=== PATIENT | female | born 1970 | race Caucasian/White ===

== ENCOUNTER 2022-05-05 14:40 | Inpatient (IN) | payer MEDICAID ==
[~2022-05-05] VITALS: Ht 162.6 cm; Wt 132.4 kg
[2022-05-05 15:30] VITALS: BP 116/53
[2022-05-05] MEDS ORDERED: TRAMADOL 50MG TABLET PO PRN ×2 (17:45→18:00)
[2022-05-05] MEDS ORDERED: NALOXONE HCL 0.4MG/ML VIAL IV PRN ×2 (18:00)
[2022-05-05 20:00] VITALS: BP 158/71
[2022-05-05] MEDS: HYDROCODONE/ACETAMINOPHEN 5/325MG TABLET PO PRN (20:00)
[2022-05-05 20:20] VITALS: BP 167/71
[2022-05-06] MEDS: HYDROCODONE/ACETAMINOPHEN 5/325MG TABLET PO PRN ×2 (04:35→10:09)
[2022-05-06 08:00] VITALS: BP 106/66
[2022-05-06] MEDS ORDERED: MORPHINE SULFATE 2 MG/ML CPJ (NOT FOR IM USE) IV PRN (11:00)
[2022-05-06] MEDS ORDERED: HYDROCODONE/ACETAMINOPHEN 10/325MG TABLET PO PRN (11:00)
[2022-05-06] MEDS ORDERED: HYDROCODONE/ACETAMINOPHEN 5/325MG TABLET PO PRN (11:15)
[2022-05-06 11:57] LABS: BASOPHILS % 0.6 % (0.0-2.0); EOSINOPHILS % 3.1 % (0.0-5.0); HEMATOCRIT. 42.1 % (36.0-48.0); HEMOGLOBIN. 13.7 g/dL (12.0-16.0); LYMPHOCYTES % 13.5 % (20.0-50.0); MEAN CORPUSCULAR HEMOGLOBIN 31.7 pg (28.0-32.0); MEAN CORPUSCULAR VOLUME 97.3 fL (81.0-99.0); MEAN PLATELET VOLUME 8.4 fl (7.4-10.4); MONOCYTES % 8.8 % (2.0-8.0); PLATELET 269 x1000/uL (130-400); RED BLOOD CELL COUNT 4.33 mill/uL (4.2-5.4); RED CELL DISTRIBUTION WIDTH 15.1 % (11.6-14.6)
[2022-05-06] MEDS: LIDOCAINE 5% PATCH TOP SCH (12:03)
[2022-05-06 12:21] LABS: CHLORIDE 104 mEq/L (98-107)
[2022-05-06] MEDS ORDERED: IPRATROPIUM/ALBUTEROL 0.5-3(2.5)MG/3ML NEB HHN PRN (14:30)
[2022-05-06] MEDS ORDERED: HEPARIN 5000 UNITS/ML VIAL SUBCUT ONE (14:30)
[2022-05-06] MEDS ORDERED: ALBUTEROL (0.083%) 2.5MG/3ML NEB HHN PRN (14:45)
[2022-05-06] MEDS ORDERED: IPRATROPIUM BROMIDE (0.02%) 0.5MG/2.5ML NEB HHN PRN (14:45)
[2022-05-06] MEDS: ASPIRIN 81MG TABLET PO SCH (15:14)
[2022-05-06] MEDS: AMLODIPINE 5MG TABLET PO SCH (15:14)
[2022-05-06] MEDS: ASCORBIC ACID 500 MG TABLET PO SCH (15:17)
[2022-05-06] MEDS: NICOTINE 14MG PATCH TD SCH (15:21)
[2022-05-06 15:45] LABS: BASOPHILS % 0.6 % (0.0-2.0); EOSINOPHILS % 2.8 % (0.0-5.0); HEMATOCRIT. 40.2 % (36.0-48.0); HEMOGLOBIN. 13.3 g/dL (12.0-16.0); LYMPHOCYTES % 13.2 % (20.0-50.0); MEAN CORPUSCULAR HEMOGLOBIN 31.9 pg (28.0-32.0); MEAN CORPUSCULAR VOLUME 95.9 fL (81.0-99.0); MEAN PLATELET VOLUME 8.1 fl (7.4-10.4); MONOCYTES % 8.2 % (2.0-8.0); NEUTROPHILS % 75.2 % (40.0-76.0); PLATELET 310 x1000/uL (130-400); RED BLOOD CELL COUNT 4.19 mill/uL (4.2-5.4); RED CELL DISTRIBUTION WIDTH 15.1 % (11.6-14.6)
[2022-05-06] MEDS: HYDROCODONE/ACETAMINOPHEN 10/325MG TABLET PO PRN (16:12)
[2022-05-06] MEDS: BACLOFEN 10MG TABLET PO SCH ×2 (16:25→20:45)
[2022-05-06] MEDS: TIZANIDINE HCL 2MG TABLET PO PRN (16:26)
[2022-05-06] MEDS: ENOXAPARIN 40MG/0.4ML SYR SUBCUT SCH (16:28)
[2022-05-06 19:49] VITALS: BP 166/94
[2022-05-06] MEDS: ATORVASTATIN CALCIUM 40MG TABLET PO SCH (20:43)
[2022-05-06] MEDS: HYDRALAZINE HCL 25MG TABLET PO PRN (20:47)
[2022-05-07] MEDS: BISACODYL 10MG SUPP PR PRN (00:02)
[2022-05-07] MEDS: HYDROCODONE/ACETAMINOPHEN 10/325MG TABLET PO PRN ×3 (00:48→12:56)
[2022-05-07] MEDS: ENOXAPARIN 40MG/0.4ML SYR SUBCUT SCH ×2 (05:56→17:30)
[2022-05-07 06:42] LABS: CHLORIDE 100 mEq/L (98-107)
[2022-05-07 07:02] LABS: TOTAL IRON BINDING CAPACITY 347 ug/dL (250-450)
[2022-05-07 07:13] LABS: BASOPHILS % 0.6 % (0.0-2.0); EOSINOPHILS % 2.8 % (0.0-5.0); HEMATOCRIT. 38.7 % (36.0-48.0); LYMPHOCYTES % 13.8 % (20.0-50.0); MEAN CORPUSCULAR HEMOGLOBIN 32.1 pg (28.0-32.0); MEAN CORPUSCULAR VOLUME 95.8 fL (81.0-99.0); MEAN PLATELET VOLUME 8.3 fl (7.4-10.4); MONOCYTES % 9.7 % (2.0-8.0); NEUTROPHILS % 73.1 % (40.0-76.0); PLATELET 279 x1000/uL (130-400); RED BLOOD CELL COUNT 4.04 mill/uL (4.2-5.4); RED CELL DISTRIBUTION WIDTH 14.7 % (11.6-14.6)
[2022-05-07 07:54] VITALS: BP 151/69
[2022-05-07 08:13] LABS: HEPATITIS B SURFACE ANTIGEN NEGATIVE
[2022-05-07 08:18] LABS: FOLIC ACID (FOLATE) SERUM 14.5 ng/mL (>5.38)
[2022-05-07] MEDS: AMLODIPINE 5MG TABLET PO SCH (08:34)
[2022-05-07] MEDS: BACLOFEN 10MG TABLET PO SCH ×4 (08:34→21:04)
[2022-05-07] MEDS: ASPIRIN 81MG TABLET PO SCH (08:34)
[2022-05-07] MEDS: NICOTINE 14MG PATCH TD SCH (08:35)
[2022-05-07] MEDS: LIDOCAINE 5% PATCH TOP SCH (08:35)
[2022-05-07] MEDS: ASCORBIC ACID 500 MG TABLET PO SCH (08:35)
[2022-05-07] MEDS: FERROUS SULFATE 325MG TABLET PO SCH (08:35)
[2022-05-07 14:25] LABS: CREATINE KINASE 76 IU/L (26-192)
[2022-05-07 20:00] VITALS: BP 139/62
[2022-05-07] MEDS: ATORVASTATIN CALCIUM 40MG TABLET PO SCH (21:04)
[2022-05-08] MEDS: ENOXAPARIN 40MG/0.4ML SYR SUBCUT SCH ×2 (05:42→18:51)
[2022-05-08] MEDS: HYDROCODONE/ACETAMINOPHEN 10/325MG TABLET PO PRN ×2 (06:05→14:40)
[2022-05-08 07:21] LABS: CLARITY URINE CLOUDY (CLEAR); COLOR URINE YELLOW (YELLOW); KETONES URINE TRACE (NEGATIVE); LEUKOCYTE ESTERASE URINE NEGATIVE (NEGATIVE); NITRITE URINE NEGATIVE (NEGATIVE); OCCULT BLOOD URINE NEGATIVE (NEGATIVE); PH URINE 5.5 (4.5-8.0); PROTEIN URINE 3+ (NEGATIVE); SPECIFIC GRAVITY URINE 1.022 (1.005-1.030)
[2022-05-08 08:00] VITALS: BP 140/38
[2022-05-08] MEDS: BACLOFEN 10MG TABLET PO SCH ×4 (09:02→22:14)
[2022-05-08] MEDS: AMLODIPINE 5MG TABLET PO SCH (09:02)
[2022-05-08] MEDS: NICOTINE 14MG PATCH TD SCH (09:03)
[2022-05-08] MEDS: ASPIRIN 81MG TABLET PO SCH (09:03)
[2022-05-08] MEDS: ASCORBIC ACID 500 MG TABLET PO SCH (09:03)
[2022-05-08] MEDS: LIDOCAINE 5% PATCH TOP SCH (09:04)
[2022-05-08] MEDS ORDERED: NA PHOS,M-B/NA PHOS,DI-BA ENEMA 118ML PR PRN (10:15)
[2022-05-08] MEDS ORDERED: LACTULOSE 20G/30ML UDC PO SCH (12:00)
[2022-05-08] MEDS: LACTULOSE 20G/30ML UDC PO PRN ×2 (18:40→18:51)
[2022-05-08 20:00] VITALS: BP 121/54
[2022-05-08] MEDS: ATORVASTATIN CALCIUM 40MG TABLET PO SCH (22:14)
[2022-05-09] MEDS: HYDROCODONE/ACETAMINOPHEN 10/325MG TABLET PO PRN ×2 (00:07→18:26)
[2022-05-09] MEDS: LEVOTHYROXINE SODIUM 50MCG TABLET PO SCH (06:28)
[2022-05-09] MEDS: ENOXAPARIN 40MG/0.4ML SYR SUBCUT SCH ×2 (06:29→17:27)
[2022-05-09 08:00] VITALS: BP 136/68
[2022-05-09] MEDS ORDERED: LACTULOSE 20G/30ML UDC PO PRN (08:00)
[2022-05-09] MEDS: BACLOFEN 10MG TABLET PO SCH ×4 (08:45→21:07)
[2022-05-09] MEDS: ASCORBIC ACID 500 MG TABLET PO SCH (08:47)
[2022-05-09] MEDS: ASPIRIN 81MG TABLET PO SCH (09:00)
[2022-05-09] MEDS: LIDOCAINE 5% PATCH TOP SCH (09:00)
[2022-05-09] MEDS: FERROUS SULFATE 325MG TABLET PO SCH (09:00)
[2022-05-09] MEDS: AMLODIPINE 5MG TABLET PO SCH (09:00)
[2022-05-09] MEDS: NICOTINE 14MG PATCH TD SCH (09:00)
[2022-05-09 13:06] LABS: ANTI-CARDIOLIPIN AB IGA < 9 APL U/mL (0-11); ANTI-CARDIOLIPIN AB IGG < 9 GPL U/mL (0-14); ANTI-CARDIOLIPIN AB IGM < 9 MPL U/mL (0-12)
[2022-05-09 17:06] LABS: ANTI-THROMBIN ACTIVITY 125 % (75-135); PROTEIN C FUNCTIONAL 195 % (73-180)
[2022-05-09 20:05] VITALS: BP 131/62
[2022-05-09] MEDS: ATORVASTATIN CALCIUM 40MG TABLET PO SCH (21:08)
[2022-05-10] MEDS: HYDROCODONE/ACETAMINOPHEN 10/325MG TABLET PO PRN ×2 (02:58→11:51)
[2022-05-10 06:18] LABS: BASOPHILS % 0.7 % (0.0-2.0); EOSINOPHILS % 3.9 % (0.0-5.0); HEMATOCRIT. 38.3 % (36.0-48.0); HEMOGLOBIN. 12.8 g/dL (12.0-16.0); LYMPHOCYTES % 18.6 % (20.0-50.0); MEAN CORPUSCULAR HEMOGLOBIN 32.1 pg (28.0-32.0); MEAN CORPUSCULAR VOLUME 96.3 fL (81.0-99.0); MONOCYTES % 9.6 % (2.0-8.0); NEUTROPHILS % 67.2 % (40.0-76.0); PLATELET 284 x1000/uL (130-400); RED BLOOD CELL COUNT 3.98 mill/uL (4.2-5.4); RED CELL DISTRIBUTION WIDTH 14.8 % (11.6-14.6)
[2022-05-10] MEDS: LEVOTHYROXINE SODIUM 50MCG TABLET PO SCH (06:56)
[2022-05-10] MEDS: ENOXAPARIN 40MG/0.4ML SYR SUBCUT SCH ×2 (06:56→18:48)
[2022-05-10 08:00] VITALS: BP 117/58
[2022-05-10] MEDS: BACLOFEN 10MG TABLET PO SCH ×4 (09:54→20:35)
[2022-05-10] MEDS: ASPIRIN 81MG TABLET PO SCH (09:54)
[2022-05-10] MEDS: AMLODIPINE 5MG TABLET PO SCH (09:54)
[2022-05-10] MEDS: NICOTINE 14MG PATCH TD SCH (09:55)
[2022-05-10] MEDS: LIDOCAINE 5% PATCH TOP SCH (09:55)
[2022-05-10] MEDS: ASCORBIC ACID 500 MG TABLET PO SCH (09:55)
[2022-05-10 15:11] LABS: FACTOR V LEIDEN See below: (.)
[2022-05-10 19:44] VITALS: BP 121/56
[2022-05-10] MEDS: ATORVASTATIN CALCIUM 40MG TABLET PO SCH (20:35)
[2022-05-10] MEDS: BISACODYL 10MG SUPP PR PRN (22:30)
[2022-05-11] MEDS: ENOXAPARIN 40MG/0.4ML SYR SUBCUT SCH ×2 (06:19→18:22)
[2022-05-11] MEDS: LEVOTHYROXINE SODIUM 50MCG TABLET PO SCH (06:19)
[2022-05-11 07:08] LABS: 25-HYDROXY VITAMIN D3 12 ng/mL (.)
[2022-05-11 08:00] VITALS: BP 125/69
[2022-05-11] MEDS: NICOTINE 14MG PATCH TD SCH (09:00)
[2022-05-11] MEDS: AMLODIPINE 5MG TABLET PO SCH (09:00)
[2022-05-11] MEDS: ASCORBIC ACID 500 MG TABLET PO SCH (09:00)
[2022-05-11] MEDS: ASPIRIN 81MG TABLET PO SCH (09:00)
[2022-05-11] MEDS: FERROUS SULFATE 325MG TABLET PO SCH (09:00)
[2022-05-11] MEDS: BACLOFEN 10MG TABLET PO SCH ×4 (09:00→22:01)
[2022-05-11] MEDS: LIDOCAINE 5% PATCH TOP SCH (09:00)
[2022-05-11] MEDS: HYDROCODONE/ACETAMINOPHEN 10/325MG TABLET PO PRN (16:12)
[2022-05-11] MEDS: ERGOCALCIFEROL 50000UNITS CAPSULE PO SCH (16:12)
[2022-05-11 20:00] VITALS: BP 137/51
[2022-05-11] MEDS: ATORVASTATIN CALCIUM 40MG TABLET PO SCH (22:00)
[2022-05-12] MEDS: HYDROCODONE/ACETAMINOPHEN 10/325MG TABLET PO PRN ×3 (00:18→23:00)
[2022-05-12] MEDS: ENOXAPARIN 40MG/0.4ML SYR SUBCUT SCH ×2 (06:54→17:37)
[2022-05-12] MEDS: LEVOTHYROXINE SODIUM 50MCG TABLET PO SCH (06:54)
[2022-05-12 08:00] VITALS: BP 137/55
[2022-05-12] MEDS: LIDOCAINE 5% PATCH TOP SCH (09:00)
[2022-05-12] MEDS: ASCORBIC ACID 500 MG TABLET PO SCH (09:00)
[2022-05-12] MEDS: NICOTINE 14MG PATCH TD SCH (09:00)
[2022-05-12] MEDS: ASPIRIN 81MG TABLET PO SCH (10:12)
[2022-05-12] MEDS: AMLODIPINE 5MG TABLET PO SCH (10:12)
[2022-05-12] MEDS: BACLOFEN 10MG TABLET PO SCH ×4 (10:12→22:41)
[2022-05-12] MEDS ORDERED: NALOXONE HCL 0.4MG/ML VIAL IV PRN (12:15)
[2022-05-12] MEDS: METHYLPHENIDATE HCL 5MG TABLET PO SCH (16:00)
[2022-05-12 20:00] VITALS: BP 138/59
[2022-05-12] MEDS: ATORVASTATIN CALCIUM 40MG TABLET PO SCH (22:43)
[2022-05-13] MEDS: ENOXAPARIN 40MG/0.4ML SYR SUBCUT SCH ×2 (06:52→16:52)
[2022-05-13] MEDS: LEVOTHYROXINE SODIUM 50MCG TABLET PO SCH (06:53)
[2022-05-13] MEDS: NICOTINE 14MG PATCH TD SCH (10:20)
[2022-05-13] MEDS: ASPIRIN 81MG TABLET PO SCH (10:21)
[2022-05-13] MEDS: ASCORBIC ACID 500 MG TABLET PO SCH (10:22)
[2022-05-13] MEDS: FERROUS SULFATE 325MG TABLET PO SCH (10:22)
[2022-05-13] MEDS: METHYLPHENIDATE HCL 5MG TABLET PO SCH (10:22)
[2022-05-13] MEDS: BUPROPION HCL 150MG TABLET XL 24HR PO SCH (10:23)
[2022-05-13] MEDS: AMLODIPINE 5MG TABLET PO SCH (10:24)
[2022-05-13] MEDS: BACLOFEN 10MG TABLET PO SCH ×4 (10:25→20:57)
[2022-05-13 11:00] VITALS: BP 115/72
[2022-05-13] MEDS: HYDROCODONE/ACETAMINOPHEN 10/325MG TABLET PO PRN ×2 (11:13→21:45)
[2022-05-13] MEDS: LIDOCAINE 5% PATCH TOP SCH (11:14)
[2022-05-13] MEDS: LACTULOSE 20G/30ML UDC PO PRN (16:38)
[2022-05-13 20:00] VITALS: BP 130/57
[2022-05-13] MEDS: ATORVASTATIN CALCIUM 40MG TABLET PO SCH (20:57)
[2022-05-13] MEDS: MORPHINE SULFATE 15MG TABLET SR PO SCH (22:30)
[2022-05-14 05:42] LABS: BASOPHILS % 0.6 % (0.0-2.0); EOSINOPHILS % 3.1 % (0.0-5.0); HEMATOCRIT. 38.8 % (36.0-48.0); LYMPHOCYTES % 18.2 % (20.0-50.0); MEAN CORPUSCULAR HEMOGLOBIN 31.9 pg (28.0-32.0); MEAN CORPUSCULAR VOLUME 95.3 fL (81.0-99.0); MEAN PLATELET VOLUME 8.2 fl (7.4-10.4); MONOCYTES % 7.7 % (2.0-8.0); NEUTROPHILS % 70.4 % (40.0-76.0); PLATELET 307 x1000/uL (130-400); RED BLOOD CELL COUNT 4.07 mill/uL (4.2-5.4); RED CELL DISTRIBUTION WIDTH 14.3 % (11.6-14.6)
[2022-05-14] MEDS: ENOXAPARIN 40MG/0.4ML SYR SUBCUT SCH ×2 (05:54→19:08)
[2022-05-14] MEDS: HYDROCODONE/ACETAMINOPHEN 10/325MG TABLET PO PRN (06:03)
[2022-05-14] MEDS: LEVOTHYROXINE SODIUM 50MCG TABLET PO SCH (06:06)
[2022-05-14] MEDS: AMLODIPINE 5MG TABLET PO SCH (09:00)
[2022-05-14] MEDS: METHYLPHENIDATE HCL 5MG TABLET PO SCH (09:29)
[2022-05-14 10:49] VITALS: BP 119/81
[2022-05-14] MEDS: LIDOCAINE 5% PATCH TOP SCH (12:58)
[2022-05-14] MEDS: NICOTINE 14MG PATCH TD SCH (12:58)
[2022-05-14] MEDS: BUPROPION HCL 150MG TABLET XL 24HR PO SCH (12:59)
[2022-05-14] MEDS: ASCORBIC ACID 500 MG TABLET PO SCH (12:59)
[2022-05-14] MEDS: BACLOFEN 10MG TABLET PO SCH ×4 (13:00→21:23)
[2022-05-14] MEDS: ASPIRIN 81MG TABLET PO SCH (13:00)
[2022-05-14] MEDS: HYDRALAZINE HCL 25MG TABLET PO PRN (13:01)
[2022-05-14] MEDS: MORPHINE SULFATE 15MG TABLET SR PO SCH ×2 (13:01→20:44)
[2022-05-14] MEDS: BISACODYL 10MG SUPP PR PRN (19:19)
[2022-05-14 20:00] VITALS: BP 138/66
[2022-05-14] MEDS: ATORVASTATIN CALCIUM 40MG TABLET PO SCH (20:36)
[2022-05-15] MEDS: ENOXAPARIN 40MG/0.4ML SYR SUBCUT SCH ×2 (06:43→17:47)
[2022-05-15] MEDS: LEVOTHYROXINE SODIUM 50MCG TABLET PO SCH (06:43)
[2022-05-15 08:00] VITALS: BP 128/51
[2022-05-15] MEDS: FERROUS SULFATE 325MG TABLET PO SCH (09:00)
[2022-05-15] MEDS: ASPIRIN 81MG TABLET PO SCH (09:00)
[2022-05-15] MEDS: MORPHINE SULFATE 15MG TABLET SR PO SCH ×2 (09:00→22:00)
[2022-05-15] MEDS: ASCORBIC ACID 500 MG TABLET PO SCH (09:00)
[2022-05-15] MEDS: LIDOCAINE 5% PATCH TOP SCH (09:00)
[2022-05-15] MEDS: NICOTINE 14MG PATCH TD SCH (09:00)
[2022-05-15] MEDS: METHYLPHENIDATE HCL 5MG TABLET PO SCH (09:00)
[2022-05-15] MEDS: BACLOFEN 10MG TABLET PO SCH ×4 (09:00→21:45)
[2022-05-15] MEDS: AMLODIPINE 5MG TABLET PO SCH (09:00)
[2022-05-15] MEDS: BUPROPION HCL 150MG TABLET XL 24HR PO SCH (09:00)
[2022-05-15] MEDS: BISACODYL 10MG SUPP PR PRN (15:37)
[2022-05-15] MEDS: POLYETHYLENE GLYCOL 3350 (17GM) 1 DOSE PACK PO SCH (15:45)
[2022-05-15 20:00] VITALS: BP 138/44
[2022-05-15] MEDS: ATORVASTATIN CALCIUM 40MG TABLET PO SCH (21:50)
[2022-05-16] MEDS: ENOXAPARIN 40MG/0.4ML SYR SUBCUT SCH ×2 (06:25→16:45)
[2022-05-16] MEDS: LEVOTHYROXINE SODIUM 50MCG TABLET PO SCH (06:25)
[2022-05-16 08:00] VITALS: BP 137/61
[2022-05-16] MEDS: POLYETHYLENE GLYCOL 3350 (17GM) 1 DOSE PACK PO SCH (09:00)
[2022-05-16] MEDS: MORPHINE SULFATE 15MG TABLET SR PO SCH ×3 (09:00→20:56)
[2022-05-16] MEDS: BACLOFEN 10MG TABLET PO SCH ×4 (10:04→20:56)
[2022-05-16] MEDS: ASCORBIC ACID 500 MG TABLET PO SCH (10:04)
[2022-05-16] MEDS: ASPIRIN 81MG TABLET PO SCH (10:04)
[2022-05-16] MEDS: BUPROPION HCL 150MG TABLET XL 24HR PO SCH (10:04)
[2022-05-16] MEDS: METHYLPHENIDATE HCL 5MG TABLET PO SCH (10:04)
[2022-05-16] MEDS: HYDRALAZINE HCL 25MG TABLET PO PRN (10:05)
[2022-05-16] MEDS: NICOTINE 14MG PATCH TD SCH (10:06)
[2022-05-16] MEDS: LIDOCAINE 5% PATCH TOP SCH (10:07)
[2022-05-16] MEDS: AMLODIPINE 5MG TABLET PO SCH (10:07)
[2022-05-16] MEDS: LACTULOSE 20G/30ML UDC PO PRN (10:15)
[2022-05-16] MEDS: HYDROCODONE/ACETAMINOPHEN 10/325MG TABLET PO PRN (12:52)
[2022-05-16 20:00] VITALS: BP 136/59
[2022-05-16] MEDS: ATORVASTATIN CALCIUM 40MG TABLET PO SCH (20:56)
[2022-05-17] MEDS: HYDROCODONE/ACETAMINOPHEN 10/325MG TABLET PO PRN ×2 (00:38→14:39)
[2022-05-17] MEDS: LEVOTHYROXINE SODIUM 50MCG TABLET PO SCH (06:05)
[2022-05-17] MEDS: ENOXAPARIN 40MG/0.4ML SYR SUBCUT SCH (06:05)
[2022-05-17 06:25] LABS: BASOPHILS % 0.5 % (0.0-2.0); EOSINOPHILS % 2.9 % (0.0-5.0); HEMATOCRIT. 37.8 % (36.0-48.0); HEMOGLOBIN. 12.8 g/dL (12.0-16.0); LYMPHOCYTES % 14.3 % (20.0-50.0); MEAN CORPUSCULAR HEMOGLOBIN 32.1 pg (28.0-32.0); MEAN PLATELET VOLUME 8.3 fl (7.4-10.4); MONOCYTES % 9.6 % (2.0-8.0); NEUTROPHILS % 72.7 % (40.0-76.0); PLATELET 309 x1000/uL (130-400); RED BLOOD CELL COUNT 3.98 mill/uL (4.2-5.4); RED CELL DISTRIBUTION WIDTH 14.3 % (11.6-14.6)
[2022-05-17 08:00] VITALS: BP 112/82
[2022-05-17] MEDS: POLYETHYLENE GLYCOL 3350 (17GM) 1 DOSE PACK PO SCH (09:00)
[2022-05-17] MEDS: METHYLPHENIDATE HCL 5MG TABLET PO SCH (09:05)
[2022-05-17] MEDS: BUPROPION HCL 150MG TABLET XL 24HR PO SCH (09:05)
[2022-05-17 09:08] LABS: CREATINE KINASE 56 IU/L (26-192)
[2022-05-17] MEDS: MORPHINE SULFATE 15MG TABLET SR PO SCH ×2 (13:00→21:50)
[2022-05-17] MEDS: NICOTINE 14MG PATCH TD SCH (14:38)
[2022-05-17] MEDS: LIDOCAINE 5% PATCH TOP SCH (14:38)
[2022-05-17] MEDS: ASPIRIN 81MG TABLET PO SCH (14:39)
[2022-05-17] MEDS: ASCORBIC ACID 500 MG TABLET PO SCH (14:40)
[2022-05-17] MEDS: BACLOFEN 10MG TABLET PO SCH ×3 (14:40→21:49)
[2022-05-17] MEDS: FERROUS SULFATE 325MG TABLET PO SCH (14:40)
[2022-05-17] MEDS: AMLODIPINE 5MG TABLET PO SCH (16:46)
[2022-05-17 20:00] VITALS: BP 114/47
[2022-05-17] MEDS: ATORVASTATIN CALCIUM 40MG TABLET PO SCH (21:51)
[2022-05-18 05:38] LABS: BASOPHILS % 0.8 % (0.0-2.0); EOSINOPHILS % 3.4 % (0.0-5.0); HEMATOCRIT. 36.2 % (36.0-48.0); HEMOGLOBIN. 12.2 g/dL (12.0-16.0); LYMPHOCYTES % 15.3 % (20.0-50.0); MEAN CORPUSCULAR HEMOGLOBIN 31.7 pg (28.0-32.0); MEAN CORPUSCULAR VOLUME 94.4 fL (81.0-99.0); MEAN PLATELET VOLUME 8.3 fl (7.4-10.4); MONOCYTES % 8.9 % (2.0-8.0); NEUTROPHILS % 71.6 % (40.0-76.0); PLATELET 311 x1000/uL (130-400); RED BLOOD CELL COUNT 3.83 mill/uL (4.2-5.4); RED CELL DISTRIBUTION WIDTH 14.7 % (11.6-14.6)
[2022-05-18 06:07] LABS: T4 FREE 0.98 ng/dL (0.76-1.46)
[2022-05-18] MEDS: ENOXAPARIN 40MG/0.4ML SYR SUBCUT SCH ×2 (06:20→17:18)
[2022-05-18] MEDS: LEVOTHYROXINE SODIUM 50MCG TABLET PO SCH (06:20)
[2022-05-18 08:00] VITALS: BP 134/63
[2022-05-18] MEDS: NICOTINE 14MG PATCH TD SCH (08:15)
[2022-05-18] MEDS: ASPIRIN 81MG TABLET PO SCH (08:15)
[2022-05-18] MEDS: LIDOCAINE 5% PATCH TOP SCH (08:15)
[2022-05-18] MEDS: ASCORBIC ACID 500 MG TABLET PO SCH (08:16)
[2022-05-18] MEDS: ERGOCALCIFEROL 50000UNITS CAPSULE PO SCH (08:16)
[2022-05-18] MEDS: BACLOFEN 10MG TABLET PO SCH ×4 (08:16→22:37)
[2022-05-18] MEDS: MORPHINE SULFATE 15MG TABLET SR PO SCH ×2 (08:16→22:39)
[2022-05-18] MEDS: METHYLPHENIDATE HCL 5MG TABLET PO SCH (08:17)
[2022-05-18] MEDS: AMLODIPINE 5MG TABLET PO SCH (08:17)
[2022-05-18] MEDS: BUPROPION HCL 150MG TABLET XL 24HR PO SCH (08:17)
[2022-05-18] MEDS: POLYETHYLENE GLYCOL 3350 (17GM) 1 DOSE PACK PO SCH (08:28)
[2022-05-18] MEDS: ONDANSETRON 4MG ODT PO PRN (14:00)
[2022-05-18] MEDS ORDERED: IPRATROPIUM BROMIDE (0.02%) 0.5MG/2.5ML NEB HHN PRN (14:30)
[2022-05-18] MEDS ORDERED: ALBUTEROL (0.083%) 2.5MG/3ML NEB HHN PRN (14:30)
[2022-05-18] MEDS ORDERED: IPRATROPIUM/ALBUTEROL 0.5-3(2.5)MG/3ML NEB HHN PRN (14:30)
[2022-05-18] MEDS: HYDROCODONE/ACETAMINOPHEN 10/325MG TABLET PO PRN (14:33)
[2022-05-18 20:00] VITALS: BP 109/56
[2022-05-18] MEDS: ATORVASTATIN CALCIUM 40MG TABLET PO SCH (22:35)
[2022-05-19] MEDS: ENOXAPARIN 40MG/0.4ML SYR SUBCUT SCH ×2 (05:27→18:00)
[2022-05-19] MEDS: LEVOTHYROXINE SODIUM 50MCG TABLET PO SCH (06:38)
[2022-05-19 06:42] LABS: BASOPHILS % 0.9 % (0.0-2.0); EOSINOPHILS % 3.1 % (0.0-5.0); HEMATOCRIT. 39.2 % (36.0-48.0); HEMOGLOBIN. 13.1 g/dL (12.0-16.0); LYMPHOCYTES % 13.5 % (20.0-50.0); MEAN CORPUSCULAR HEMOGLOBIN 31.6 pg (28.0-32.0); MEAN CORPUSCULAR VOLUME 94.8 fL (81.0-99.0); MEAN PLATELET VOLUME 8.2 fl (7.4-10.4); MONOCYTES % 8.6 % (2.0-8.0); NEUTROPHILS % 73.9 % (40.0-76.0); PLATELET 297 x1000/uL (130-400); RED BLOOD CELL COUNT 4.13 mill/uL (4.2-5.4); RED CELL DISTRIBUTION WIDTH 14.5 % (11.6-14.6)
[2022-05-19 08:00] VITALS: BP 112/53
[2022-05-19] MEDS: NICOTINE 14MG PATCH TD SCH (09:00)
[2022-05-19] MEDS: POLYETHYLENE GLYCOL 3350 (17GM) 1 DOSE PACK PO SCH (09:00)
[2022-05-19] MEDS: ASPIRIN 81MG TABLET PO SCH (09:00)
[2022-05-19] MEDS: FERROUS SULFATE 325MG TABLET PO SCH (09:00)
[2022-05-19] MEDS: ASCORBIC ACID 500 MG TABLET PO SCH (09:00)
[2022-05-19] MEDS: BACLOFEN 10MG TABLET PO SCH ×4 (09:00→21:00)
[2022-05-19] MEDS: LIDOCAINE 5% PATCH TOP SCH (09:00)
[2022-05-19] MEDS: AMLODIPINE 5MG TABLET PO SCH (09:00)
[2022-05-19] MEDS: MORPHINE SULFATE 15MG TABLET SR PO SCH ×2 (09:00→21:00)
[2022-05-19] MEDS: METHYLPHENIDATE HCL 5MG TABLET PO SCH (09:00)
[2022-05-19] MEDS: BUPROPION HCL 150MG TABLET XL 24HR PO SCH (09:00)
[2022-05-19] MEDS ORDERED: POTASSIUM CHLORIDE 20MEQ/PACKET PO NR (09:15)
[2022-05-19 20:00] VITALS: BP 102/54
[2022-05-19] MEDS: ATORVASTATIN CALCIUM 40MG TABLET PO SCH (21:00)
[2022-05-20] MEDS: ENOXAPARIN 40MG/0.4ML SYR SUBCUT SCH ×2 (06:33→19:03)
[2022-05-20] MEDS: LEVOTHYROXINE SODIUM 50MCG TABLET PO SCH (06:34)
[2022-05-20 08:00] VITALS: BP 117/60
[2022-05-20] MEDS: POLYETHYLENE GLYCOL 3350 (17GM) 1 DOSE PACK PO SCH (09:00)
[2022-05-20] MEDS: ASCORBIC ACID 500 MG TABLET PO SCH (09:14)
[2022-05-20] MEDS: METHYLPHENIDATE HCL 5MG TABLET PO SCH (09:14)
[2022-05-20] MEDS: LIDOCAINE 5% PATCH TOP SCH (09:14)
[2022-05-20] MEDS: BACLOFEN 10MG TABLET PO SCH ×4 (09:14→22:00)
[2022-05-20] MEDS: BUPROPION HCL 150MG TABLET XL 24HR PO SCH (09:14)
[2022-05-20] MEDS: AMLODIPINE 5MG TABLET PO SCH (09:15)
[2022-05-20] MEDS: MORPHINE SULFATE 15MG TABLET SR PO SCH ×2 (09:15→22:00)
[2022-05-20] MEDS: ASPIRIN 81MG TABLET PO SCH (09:15)
[2022-05-20] MEDS: NICOTINE 14MG PATCH TD SCH (09:16)
[2022-05-20 20:00] VITALS: BP 122/57
[2022-05-20] MEDS: ATORVASTATIN CALCIUM 40MG TABLET PO SCH (22:00)
[2022-05-21 03:05] LABS: CLARITY URINE TURBID (CLEAR); COLOR URINE YELLOW (YELLOW); KETONES URINE NEGATIVE (NEGATIVE); LEUKOCYTE ESTERASE URINE 3+ (NEGATIVE); NITRITE URINE POSITIVE (NEGATIVE); OCCULT BLOOD URINE 1+ (NEGATIVE); PROTEIN URINE 3+ (NEGATIVE); SPECIFIC GRAVITY URINE 1.018 (1.005-1.030)
[2022-05-21] MEDS: ENOXAPARIN 40MG/0.4ML SYR SUBCUT SCH ×2 (06:00→17:10)
[2022-05-21 06:45] LABS: BASOPHILS % 0.8 % (0.0-2.0); EOSINOPHILS % 2.8 % (0.0-5.0); HEMOGLOBIN. 12.5 g/dL (12.0-16.0); MEAN CORPUSCULAR HEMOGLOBIN 31.5 pg (28.0-32.0); MEAN CORPUSCULAR VOLUME 95.4 fL (81.0-99.0); MEAN PLATELET VOLUME 8.5 fl (7.4-10.4); MONOCYTES % 11.4 % (2.0-8.0); PLATELET 263 x1000/uL (130-400); RED BLOOD CELL COUNT 3.98 mill/uL (4.2-5.4); RED CELL DISTRIBUTION WIDTH 14.4 % (11.6-14.6)
[2022-05-21] MEDS: LEVOTHYROXINE SODIUM 50MCG TABLET PO SCH (07:00)
[2022-05-21 07:56] VITALS: BP 137/55
[2022-05-21] MEDS: AMLODIPINE 5MG TABLET PO SCH (08:39)
[2022-05-21] MEDS: METHYLPHENIDATE HCL 5MG TABLET PO SCH (08:39)
[2022-05-21] MEDS: NICOTINE 14MG PATCH TD SCH (08:39)
[2022-05-21] MEDS: LIDOCAINE 5% PATCH TOP SCH (08:39)
[2022-05-21] MEDS: ASCORBIC ACID 500 MG TABLET PO SCH (08:39)
[2022-05-21] MEDS: ASPIRIN 81MG TABLET PO SCH (08:39)
[2022-05-21] MEDS: BACLOFEN 10MG TABLET PO SCH ×4 (08:40→21:45)
[2022-05-21] MEDS: FERROUS SULFATE 325MG TABLET PO SCH (08:40)
[2022-05-21] MEDS: BUPROPION HCL 150MG TABLET XL 24HR PO SCH (08:40)
[2022-05-21] MEDS: MORPHINE SULFATE 15MG TABLET SR PO SCH ×2 (09:00→21:45)
[2022-05-21] MEDS: POLYETHYLENE GLYCOL 3350 (17GM) 1 DOSE PACK PO SCH (09:00)
[2022-05-21 21:44] VITALS: BP 142/54
[2022-05-21] MEDS: ATORVASTATIN CALCIUM 40MG TABLET PO SCH (21:45)
[2022-05-22 08:00] VITALS: BP 97/60
[2022-05-22] MEDS: AMLODIPINE 5MG TABLET PO SCH (09:00)
[2022-05-22] MEDS: POLYETHYLENE GLYCOL 3350 (17GM) 1 DOSE PACK PO SCH (09:00)
[2022-05-22] MEDS: MORPHINE SULFATE 15MG TABLET SR PO SCH ×3 (09:00→22:38)
[2022-05-22] MEDS: BACLOFEN 10MG TABLET PO SCH ×4 (09:03→22:38)
[2022-05-22] MEDS: NICOTINE 14MG PATCH TD SCH (09:03)
[2022-05-22] MEDS: LIDOCAINE 5% PATCH TOP SCH (09:03)
[2022-05-22] MEDS: METHYLPHENIDATE HCL 5MG TABLET PO SCH ×2 (09:04→16:36)
[2022-05-22] MEDS: BUPROPION HCL 150MG TABLET XL 24HR PO SCH (09:04)
[2022-05-22] MEDS: ASCORBIC ACID 500 MG TABLET PO SCH (09:04)
[2022-05-22] MEDS: ASPIRIN 81MG TABLET PO SCH (09:04)
[2022-05-22] MEDS: ENOXAPARIN 40MG/0.4ML SYR SUBCUT SCH ×2 (16:35→18:51)
[2022-05-22 20:00] VITALS: BP 142/59
[2022-05-22] MEDS: ATORVASTATIN CALCIUM 40MG TABLET PO SCH (22:38)
[2022-05-23 06:32] LABS: BASOPHILS % 0.7 % (0.0-2.0); EOSINOPHILS % 3.8 % (0.0-5.0); HEMATOCRIT. 39.6 % (36.0-48.0); HEMOGLOBIN. 12.9 g/dL (12.0-16.0); LYMPHOCYTES % 20.5 % (20.0-50.0); MEAN CORPUSCULAR HEMOGLOBIN 31.5 pg (28.0-32.0); MEAN CORPUSCULAR VOLUME 96.6 fL (81.0-99.0); MEAN PLATELET VOLUME 7.9 fl (7.4-10.4); MONOCYTES % 9.2 % (2.0-8.0); NEUTROPHILS % 65.8 % (40.0-76.0); PLATELET 278 x1000/uL (130-400); RED CELL DISTRIBUTION WIDTH 14.7 % (11.6-14.6)
[2022-05-23] MEDS: ENOXAPARIN 40MG/0.4ML SYR SUBCUT SCH ×2 (06:51→18:00)
[2022-05-23] MEDS: LEVOTHYROXINE SODIUM 50MCG TABLET PO SCH (06:52)
[2022-05-23 08:00] VITALS: BP 115/57
[2022-05-23] MEDS: BUPROPION HCL 150MG TABLET XL 24HR PO SCH (09:00)
[2022-05-23] MEDS: POLYETHYLENE GLYCOL 3350 (17GM) 1 DOSE PACK PO SCH (09:00)
[2022-05-23] MEDS: METHYLPHENIDATE HCL 5MG TABLET PO SCH ×2 (09:00→19:37)
[2022-05-23] MEDS: NICOTINE 14MG PATCH TD SCH (12:50)
[2022-05-23] MEDS: LIDOCAINE 5% PATCH TOP SCH (12:52)
[2022-05-23] MEDS: ASCORBIC ACID 500 MG TABLET PO SCH (12:52)
[2022-05-23] MEDS: ASPIRIN 81MG TABLET PO SCH (12:52)
[2022-05-23] MEDS: BACLOFEN 10MG TABLET PO SCH ×4 (12:53→21:58)
[2022-05-23] MEDS: AMLODIPINE 5MG TABLET PO SCH (12:53)
[2022-05-23] MEDS: FERROUS SULFATE 325MG TABLET PO SCH (12:54)
[2022-05-23 20:08] VITALS: BP 152/66
[2022-05-23] MEDS: ATORVASTATIN CALCIUM 40MG TABLET PO SCH (21:59)
[2022-05-24] MEDS: ENOXAPARIN 40MG/0.4ML SYR SUBCUT SCH ×2 (06:59→18:09)
[2022-05-24 07:00] LABS: BASOPHILS % 0.6 % (0.0-2.0); EOSINOPHILS % 2.9 % (0.0-5.0); HEMATOCRIT. 37.7 % (36.0-48.0); HEMOGLOBIN. 12.6 g/dL (12.0-16.0); LYMPHOCYTES % 16.1 % (20.0-50.0); MEAN CORPUSCULAR HEMOGLOBIN 31.6 pg (28.0-32.0); MEAN CORPUSCULAR VOLUME 94.2 fL (81.0-99.0); MONOCYTES % 8.8 % (2.0-8.0); NEUTROPHILS % 71.6 % (40.0-76.0); PLATELET 302 x1000/uL (130-400); RED CELL DISTRIBUTION WIDTH 14.4 % (11.6-14.6)
[2022-05-24] MEDS: LEVOTHYROXINE SODIUM 50MCG TABLET PO SCH (07:00)
[2022-05-24 08:00] VITALS: BP 126/76
[2022-05-24] MEDS: POLYETHYLENE GLYCOL 3350 (17GM) 1 DOSE PACK PO SCH (09:00)
[2022-05-24] MEDS: METHYLPHENIDATE HCL 5MG TABLET PO SCH ×2 (09:10→17:00)
[2022-05-24] MEDS: ASPIRIN 81MG TABLET PO SCH (09:10)
[2022-05-24] MEDS: BACLOFEN 10MG TABLET PO SCH ×4 (09:10→21:03)
[2022-05-24] MEDS: BUPROPION HCL 150MG TABLET XL 24HR PO SCH (09:11)
[2022-05-24] MEDS: ASCORBIC ACID 500 MG TABLET PO SCH (09:11)
[2022-05-24] MEDS: LIDOCAINE 5% PATCH TOP SCH (09:14)
[2022-05-24] MEDS: AMLODIPINE 5MG TABLET PO SCH (09:17)
[2022-05-24] MEDS: ONDANSETRON 4MG ODT PO PRN (09:19)
[2022-05-24] MEDS: MORPHINE SULFATE 15MG TABLET SR PO SCH ×3 (09:21→21:04)
[2022-05-24] MEDS: NICOTINE 14MG PATCH TD SCH (09:21)
[2022-05-24] MEDS: LEVOFLOXACIN 250MG TABLET PO SCH (12:39)
[2022-05-24] MEDS ORDERED: NALOXONE HCL 0.4MG/ML VIAL IV PRN (13:00)
[2022-05-24 20:00] VITALS: BP 148/59
[2022-05-24] MEDS: ATORVASTATIN CALCIUM 40MG TABLET PO SCH (21:03)
[2022-05-25] MEDS: LEVOTHYROXINE SODIUM 50MCG TABLET PO SCH (06:02)
[2022-05-25] MEDS: ENOXAPARIN 40MG/0.4ML SYR SUBCUT SCH ×2 (06:03→19:39)
[2022-05-25 08:00] VITALS: BP 121/79
[2022-05-25] MEDS: METHYLPHENIDATE HCL 5MG TABLET PO SCH ×2 (09:00→17:00)
[2022-05-25] MEDS: ASCORBIC ACID 500 MG TABLET PO SCH (09:00)
[2022-05-25] MEDS: POLYETHYLENE GLYCOL 3350 (17GM) 1 DOSE PACK PO SCH (09:00)
[2022-05-25] MEDS: FERROUS SULFATE 325MG TABLET PO SCH (09:00)
[2022-05-25] MEDS: MORPHINE SULFATE 15MG TABLET SR PO SCH ×2 (12:09→21:00)
[2022-05-25] MEDS: BUPROPION HCL 150MG TABLET XL 24HR PO SCH (12:10)
[2022-05-25 12:15] LABS: BASOPHILS % 0.6 % (0.0-2.0); EOSINOPHILS % 2.7 % (0.0-5.0); HEMATOCRIT. 42.5 % (36.0-48.0); HEMOGLOBIN. 13.9 g/dL (12.0-16.0); LYMPHOCYTES % 17.3 % (20.0-50.0); MEAN CORPUSCULAR HEMOGLOBIN 31.8 pg (28.0-32.0); MEAN CORPUSCULAR VOLUME 97.1 fL (81.0-99.0); NEUTROPHILS % 71.4 % (40.0-76.0); PLATELET 281 x1000/uL (130-400); RED BLOOD CELL COUNT 4.38 mill/uL (4.2-5.4); RED CELL DISTRIBUTION WIDTH 14.4 % (11.6-14.6)
[2022-05-25] MEDS: LIDOCAINE 5% PATCH TOP SCH (13:41)
[2022-05-25] MEDS: ONDANSETRON 4MG ODT PO PRN (13:45)
[2022-05-25] MEDS: ASPIRIN 81MG TABLET PO SCH (15:00)
[2022-05-25] MEDS: BACLOFEN 10MG TABLET PO SCH ×4 (15:01→23:43)
[2022-05-25] MEDS: NICOTINE 14MG PATCH TD SCH (15:01)
[2022-05-25] MEDS: ERGOCALCIFEROL 50000UNITS CAPSULE PO SCH (15:01)
[2022-05-25] MEDS: CLOPIDOGREL 75MG TABLET PO SCH (15:03)
[2022-05-25] MEDS: AMLODIPINE 5MG TABLET PO SCH (15:04)
[2022-05-25] MEDS: LEVOFLOXACIN 250MG TABLET PO SCH (15:07)
[2022-05-25 20:00] VITALS: BP 112/55
[2022-05-25] MEDS: ATORVASTATIN CALCIUM 40MG TABLET PO SCH (21:00)
[2022-05-25] MEDS: BISACODYL 10MG SUPP PR PRN (23:43)
[2022-05-26] MEDS: ENOXAPARIN 40MG/0.4ML SYR SUBCUT SCH ×2 (05:43→20:45)
[2022-05-26] MEDS: LEVOTHYROXINE SODIUM 50MCG TABLET PO SCH (06:34)
[2022-05-26] MEDS: BACLOFEN 10MG TABLET PO SCH ×4 (08:32→20:45)
[2022-05-26] MEDS: ASPIRIN 81MG TABLET PO SCH (08:32)
[2022-05-26] MEDS: MORPHINE SULFATE 15MG TABLET SR PO SCH ×2 (09:00→15:32)
[2022-05-26] MEDS: LIDOCAINE 5% PATCH TOP SCH (09:00)
[2022-05-26] MEDS: AMLODIPINE 5MG TABLET PO SCH (09:00)
[2022-05-26] MEDS: POLYETHYLENE GLYCOL 3350 (17GM) 1 DOSE PACK PO SCH (09:00)
[2022-05-26] MEDS: METHYLPHENIDATE HCL 5MG TABLET PO SCH (09:00)
[2022-05-26] MEDS: ASCORBIC ACID 500 MG TABLET PO SCH (09:00)
[2022-05-26] MEDS: BUPROPION HCL 150MG TABLET XL 24HR PO SCH (09:00)
[2022-05-26] MEDS: CLOPIDOGREL 75MG TABLET PO SCH (09:00)
[2022-05-26 09:42] VITALS: BP 114/62
[2022-05-26] MEDS: NICOTINE 14MG PATCH TD SCH (10:44)
[2022-05-26] MEDS: LEVOFLOXACIN 250MG TABLET PO SCH (10:44)
[2022-05-26 20:00] VITALS: BP 142/70
[2022-05-26] MEDS: ATORVASTATIN CALCIUM 40MG TABLET PO SCH (20:44)
[2022-05-27] MEDS: HYDROCODONE/ACETAMINOPHEN 5/325MG TABLET PO PRN ×2 (01:12→14:59)
[2022-05-27] MEDS: ENOXAPARIN 40MG/0.4ML SYR SUBCUT SCH ×2 (06:27→16:44)
[2022-05-27] MEDS: LEVOTHYROXINE SODIUM 50MCG TABLET PO SCH (06:27)
[2022-05-27 08:00] VITALS: BP 116/59
[2022-05-27] MEDS: LIDOCAINE 5% PATCH TOP SCH (08:33)
[2022-05-27] MEDS: NICOTINE 14MG PATCH TD SCH (08:34)
[2022-05-27] MEDS: MORPHINE SULFATE 15MG TABLET SR PO SCH ×2 (08:34→20:27)
[2022-05-27] MEDS: BACLOFEN 10MG TABLET PO SCH ×4 (08:34→20:20)
[2022-05-27] MEDS: BUPROPION HCL 150MG TABLET XL 24HR PO SCH (08:34)
[2022-05-27] MEDS: CLOPIDOGREL 75MG TABLET PO SCH (08:35)
[2022-05-27] MEDS: FERROUS SULFATE 325MG TABLET PO SCH (08:35)
[2022-05-27] MEDS: METHYLPHENIDATE HCL 5MG TABLET PO SCH ×2 (08:35→16:44)
[2022-05-27] MEDS: ASPIRIN 81MG TABLET PO SCH (08:35)
[2022-05-27] MEDS: ASCORBIC ACID 500 MG TABLET PO SCH (08:35)
[2022-05-27] MEDS: AMLODIPINE 5MG TABLET PO SCH (08:35)
[2022-05-27] MEDS: POLYETHYLENE GLYCOL 3350 (17GM) 1 DOSE PACK PO SCH (08:40)
[2022-05-27] MEDS: LEVOFLOXACIN 250MG TABLET PO SCH (11:09)
[2022-05-27 20:00] VITALS: BP 111/57
[2022-05-27] MEDS: ATORVASTATIN CALCIUM 40MG TABLET PO SCH (20:28)
[2022-05-28] MEDS: LEVOTHYROXINE SODIUM 50MCG TABLET PO SCH (06:12)
[2022-05-28] MEDS: ENOXAPARIN 40MG/0.4ML SYR SUBCUT SCH ×2 (06:12→17:00)
[2022-05-28 08:00] VITALS: BP 123/69
[2022-05-28] MEDS: CLOPIDOGREL 75MG TABLET PO SCH (09:35)
[2022-05-28] MEDS: METHYLPHENIDATE HCL 5MG TABLET PO SCH ×2 (09:36→17:00)
[2022-05-28] MEDS: BUPROPION HCL 150MG TABLET XL 24HR PO SCH (09:36)
[2022-05-28] MEDS: MORPHINE SULFATE 15MG TABLET SR PO SCH ×2 (09:36→21:59)
[2022-05-28] MEDS: ASPIRIN 81MG TABLET PO SCH (09:36)
[2022-05-28] MEDS: AMLODIPINE 5MG TABLET PO SCH (09:36)
[2022-05-28] MEDS: ASCORBIC ACID 500 MG TABLET PO SCH (09:37)
[2022-05-28] MEDS: BACLOFEN 10MG TABLET PO SCH ×4 (09:37→21:59)
[2022-05-28] MEDS: LIDOCAINE 5% PATCH TOP SCH (09:38)
[2022-05-28] MEDS: POLYETHYLENE GLYCOL 3350 (17GM) 1 DOSE PACK PO SCH (09:38)
[2022-05-28] MEDS: NICOTINE 14MG PATCH TD SCH (09:38)
[2022-05-28] MEDS ORDERED: LIDOCAINE HCL/PF 1% 10 MG/ML 5ML VIAL ONE (09:47)
[2022-05-28] MEDS ORDERED: IOHEXOL-350 100 ML BOTTLE ONE (11:56)
[2022-05-28] MEDS: LEVOFLOXACIN 250MG TABLET PO SCH (12:46)
[2022-05-28] MEDS: HYDROCODONE/ACETAMINOPHEN 5/325MG TABLET PO PRN ×2 (12:46→16:54)
[2022-05-28 19:38] VITALS: BP 115/56
[2022-05-28] MEDS: ATORVASTATIN CALCIUM 40MG TABLET PO SCH (21:59)
[2022-05-29] MEDS: LEVOTHYROXINE SODIUM 50MCG TABLET PO SCH (06:49)
[2022-05-29] MEDS: ENOXAPARIN 40MG/0.4ML SYR SUBCUT SCH ×2 (06:51→17:21)
[2022-05-29 08:00] VITALS: BP 109/61
[2022-05-29] MEDS: MORPHINE SULFATE 15MG TABLET SR PO SCH ×2 (08:36→22:37)
[2022-05-29] MEDS: ASCORBIC ACID 500 MG TABLET PO SCH (09:00)
[2022-05-29] MEDS: BACLOFEN 10MG TABLET PO SCH ×4 (09:00→22:37)
[2022-05-29] MEDS: CLOPIDOGREL 75MG TABLET PO SCH (09:00)
[2022-05-29] MEDS: AMLODIPINE 5MG TABLET PO SCH (09:00)
[2022-05-29] MEDS: POLYETHYLENE GLYCOL 3350 (17GM) 1 DOSE PACK PO SCH (09:00)
[2022-05-29] MEDS: METHYLPHENIDATE HCL 5MG TABLET PO SCH ×2 (09:07→17:00)
[2022-05-29] MEDS: LIDOCAINE 5% PATCH TOP SCH ×2 (09:51→15:51)
[2022-05-29] MEDS: BUPROPION HCL 150MG TABLET XL 24HR PO SCH (10:31)
[2022-05-29] MEDS: ASPIRIN 81MG TABLET PO SCH (10:31)
[2022-05-29] MEDS: FERROUS SULFATE 325MG TABLET PO SCH (10:32)
[2022-05-29] MEDS: NICOTINE 14MG PATCH TD SCH (10:40)
[2022-05-29] MEDS: LEVOFLOXACIN 250MG TABLET PO SCH (12:07)
[2022-05-29] MEDS: HYDROCODONE/ACETAMINOPHEN 5/325MG TABLET PO PRN (15:55)
[2022-05-29] MEDS ORDERED: [UNRECOGNIZED DRUG - REMARK] XX SCH (16:00)
[2022-05-29 20:01] VITALS: BP 124/67
[2022-05-29] MEDS: ATORVASTATIN CALCIUM 40MG TABLET PO SCH (22:37)
[2022-05-30] MEDS: LEVOTHYROXINE SODIUM 50MCG TABLET PO SCH (06:04)
[2022-05-30] MEDS: ENOXAPARIN 40MG/0.4ML SYR SUBCUT SCH ×2 (06:05→16:59)
[2022-05-30 06:55] LABS: BASOPHILS % 0.8 % (0.0-2.0); EOSINOPHILS % 4.2 % (0.0-5.0); HEMATOCRIT. 40.4 % (36.0-48.0); HEMOGLOBIN. 13.6 g/dL (12.0-16.0); LYMPHOCYTES % 16.1 % (20.0-50.0); MEAN CORPUSCULAR HEMOGLOBIN 31.8 pg (28.0-32.0); MEAN CORPUSCULAR VOLUME 94.3 fL (81.0-99.0); MEAN PLATELET VOLUME 8.6 fl (7.4-10.4); MONOCYTES % 9.3 % (2.0-8.0); NEUTROPHILS % 69.6 % (40.0-76.0); PLATELET 312 x1000/uL (130-400); RED BLOOD CELL COUNT 4.28 mill/uL (4.2-5.4); RED CELL DISTRIBUTION WIDTH 14.5 % (11.6-14.6)
[2022-05-30 07:03] LABS: PARTIAL THROMBOPLASTIN TIME 29.1 sec (23.4-31.0); PROTHROMBIN TIME 10.6 sec (9.6-11.0)
[2022-05-30 08:00] VITALS: BP 129/68
[2022-05-30] MEDS: ASPIRIN 81MG TABLET PO SCH (08:49)
[2022-05-30] MEDS: TIZANIDINE HCL 2MG TABLET PO PRN (08:50)
[2022-05-30] MEDS: AMLODIPINE 5MG TABLET PO SCH (08:50)
[2022-05-30] MEDS: MORPHINE SULFATE 15MG TABLET SR PO SCH ×2 (08:50→21:51)
[2022-05-30] MEDS: CLOPIDOGREL 75MG TABLET PO SCH (08:50)
[2022-05-30] MEDS: POLYETHYLENE GLYCOL 3350 (17GM) 1 DOSE PACK PO SCH (08:51)
[2022-05-30] MEDS: NICOTINE 14MG PATCH TD SCH (08:59)
[2022-05-30] MEDS: BUPROPION HCL 150MG TABLET XL 24HR PO SCH (08:59)
[2022-05-30] MEDS: HYDROCODONE/ACETAMINOPHEN 5/325MG TABLET PO PRN ×2 (08:59→14:26)
[2022-05-30] MEDS: METHYLPHENIDATE HCL 5MG TABLET PO SCH ×2 (08:59→16:59)
[2022-05-30] MEDS: ASCORBIC ACID 500 MG TABLET PO SCH (08:59)
[2022-05-30] MEDS: BACLOFEN 10MG TABLET PO SCH ×4 (08:59→21:49)
[2022-05-30] MEDS: LIDOCAINE 5% PATCH TOP SCH ×2 (09:00)
[2022-05-30 10:02] LABS: CREATINE KINASE 60 IU/L (26-192)
[2022-05-30] MEDS: LEVOFLOXACIN 250MG TABLET PO SCH (11:57)
[2022-05-30] MEDS: ATORVASTATIN CALCIUM 40MG TABLET PO SCH (21:49)
[2022-05-31] MEDS: BISACODYL 10MG SUPP PR PRN ×2 (03:01→13:31)
[2022-05-31 04:07] LABS: ANA IFA Negative (.)
[2022-05-31] MEDS: HYDROCODONE/ACETAMINOPHEN 5/325MG TABLET PO PRN ×3 (04:28→17:42)
[2022-05-31] MEDS: ENOXAPARIN 40MG/0.4ML SYR SUBCUT SCH ×2 (06:19→17:42)
[2022-05-31] MEDS: LEVOTHYROXINE SODIUM 50MCG TABLET PO SCH (06:31)
[2022-05-31 08:00] VITALS: BP 145/77
[2022-05-31] MEDS: POLYETHYLENE GLYCOL 3350 (17GM) 1 DOSE PACK PO SCH (09:00)
[2022-05-31] MEDS: LIDOCAINE 5% PATCH TOP SCH ×3 (09:00→13:11)
[2022-05-31] MEDS: ASCORBIC ACID 500 MG TABLET PO SCH (09:00)
[2022-05-31] MEDS: NICOTINE 14MG PATCH TD SCH (09:57)
[2022-05-31] MEDS: MORPHINE SULFATE 15MG TABLET SR PO SCH ×2 (09:57→21:31)
[2022-05-31] MEDS: ASPIRIN 81MG TABLET PO SCH (09:57)
[2022-05-31] MEDS: AMLODIPINE 5MG TABLET PO SCH (09:58)
[2022-05-31] MEDS: METHYLPHENIDATE HCL 5MG TABLET PO SCH ×3 (09:58→17:47)
[2022-05-31] MEDS: BUPROPION HCL 150MG TABLET XL 24HR PO SCH (09:58)
[2022-05-31] MEDS: CLOPIDOGREL 75MG TABLET PO SCH (09:58)
[2022-05-31] MEDS: FERROUS SULFATE 325MG TABLET PO SCH (09:58)
[2022-05-31] MEDS: ONDANSETRON 4MG ODT PO PRN (09:58)
[2022-05-31] MEDS: BACLOFEN 10MG TABLET PO SCH ×4 (09:58→21:29)
[2022-05-31] MEDS ORDERED: NALOXONE HCL 0.4MG/ML VIAL IV PRN (12:45)
[2022-05-31] MEDS: LACTULOSE 20G/30ML UDC PO PRN (13:30)
[2022-05-31] MEDS: LACTULOSE 20G/30ML UDC PO SCH (17:41)
[2022-05-31 20:00] VITALS: BP 126/60
[2022-05-31] MEDS: ATORVASTATIN CALCIUM 40MG TABLET PO SCH (21:29)
[2022-06-01] MEDS: ONDANSETRON 4MG ODT PO PRN ×2 (04:09→09:42)
[2022-06-01] MEDS: ENOXAPARIN 40MG/0.4ML SYR SUBCUT SCH ×2 (06:51→18:05)
[2022-06-01] MEDS: LEVOTHYROXINE SODIUM 50MCG TABLET PO SCH (06:52)
[2022-06-01 07:24] LABS: BASOPHILS % 0.7 % (0.0-2.0); EOSINOPHILS % 3.9 % (0.0-5.0); HEMATOCRIT. 39.6 % (36.0-48.0); HEMOGLOBIN. 13.2 g/dL (12.0-16.0); LYMPHOCYTES % 13.8 % (20.0-50.0); MEAN CORPUSCULAR HEMOGLOBIN 31.7 pg (28.0-32.0); MEAN PLATELET VOLUME 8.8 fl (7.4-10.4); MONOCYTES % 10.5 % (2.0-8.0); NEUTROPHILS % 71.1 % (40.0-76.0); PLATELET 276 x1000/uL (130-400); RED BLOOD CELL COUNT 4.17 mill/uL (4.2-5.4); RED CELL DISTRIBUTION WIDTH 14.5 % (11.6-14.6)
[2022-06-01 08:00] VITALS: BP 120/69
[2022-06-01] MEDS: ASCORBIC ACID 500 MG TABLET PO SCH (09:00)
[2022-06-01] MEDS: POLYETHYLENE GLYCOL 3350 (17GM) 1 DOSE PACK PO SCH (09:15)
[2022-06-01] MEDS ORDERED: POTASSIUM CHLORIDE 20MEQ/PACKET PO NR (09:15)
[2022-06-01] MEDS: LACTULOSE 20G/30ML UDC PO SCH ×2 (09:15→16:28)
[2022-06-01] MEDS: BACLOFEN 10MG TABLET PO SCH ×3 (09:16→21:00)
[2022-06-01] MEDS: ERGOCALCIFEROL 50000UNITS CAPSULE PO SCH (09:16)
[2022-06-01] MEDS: ASPIRIN 81MG TABLET PO SCH (09:16)
[2022-06-01] MEDS: BUPROPION HCL 150MG TABLET XL 24HR PO SCH (09:17)
[2022-06-01] MEDS: CLOPIDOGREL 75MG TABLET PO SCH (09:18)
[2022-06-01] MEDS: NICOTINE 14MG PATCH TD SCH (09:18)
[2022-06-01] MEDS: LIDOCAINE 5% PATCH TOP SCH ×2 (09:18→18:04)
[2022-06-01] MEDS: AMLODIPINE 5MG TABLET PO SCH (09:18)
[2022-06-01] MEDS: MORPHINE SULFATE 15MG TABLET SR PO SCH ×2 (09:19→21:00)
[2022-06-01] MEDS: HYDROCODONE/ACETAMINOPHEN 5/325MG TABLET PO PRN (16:27)
[2022-06-01] MEDS: METHYLPHENIDATE HCL 5MG TABLET PO SCH (16:28)
[2022-06-01] MEDS: BISACODYL 10MG SUPP PR PRN (16:28)
[2022-06-01] MEDS ORDERED: POTASSIUM CHLORIDE 20MEQ TABLET SR PO NR (17:30)
[2022-06-01] MEDS ORDERED: BISACODYL 10MG SUPP PR PRN (18:00)
[2022-06-01] MEDS ORDERED: LACTULOSE 20G/30ML UDC PO PRN (18:00)
[2022-06-01] MEDS ORDERED: MINERAL OIL ENEMA 133ML PR PRN (18:00)
[2022-06-01 20:21] VITALS: BP 129/75
[2022-06-01] MEDS: ATORVASTATIN CALCIUM 40MG TABLET PO SCH (21:00)
[2022-06-02] MEDS: HYDROCODONE/ACETAMINOPHEN 5/325MG TABLET PO PRN ×3 (01:57→16:27)
[2022-06-02] MEDS: LEVOTHYROXINE SODIUM 50MCG TABLET PO SCH (05:24)
[2022-06-02] MEDS: ENOXAPARIN 40MG/0.4ML SYR SUBCUT SCH ×2 (05:24→17:08)
[2022-06-02 08:00] VITALS: BP 128/58
[2022-06-02] MEDS: LACTULOSE 20G/30ML UDC PO SCH ×2 (09:00→17:00)
[2022-06-02] MEDS: POLYETHYLENE GLYCOL 3350 (17GM) 1 DOSE PACK PO SCH (09:00)
[2022-06-02] MEDS: LIDOCAINE 5% PATCH TOP SCH (09:13)
[2022-06-02] MEDS: MORPHINE SULFATE 15MG TABLET SR PO SCH ×2 (09:14→21:39)
[2022-06-02] MEDS: METHYLPHENIDATE HCL 5MG TABLET PO SCH ×2 (09:14→17:00)
[2022-06-02] MEDS: NICOTINE 14MG PATCH TD SCH (09:14)
[2022-06-02] MEDS: CLOPIDOGREL 75MG TABLET PO SCH (09:16)
[2022-06-02] MEDS: ASCORBIC ACID 500 MG TABLET PO SCH (09:16)
[2022-06-02] MEDS: ASPIRIN 81MG TABLET PO SCH (09:16)
[2022-06-02] MEDS: AMLODIPINE 5MG TABLET PO SCH (09:16)
[2022-06-02] MEDS: BACLOFEN 10MG TABLET PO SCH ×4 (09:16→21:39)
[2022-06-02] MEDS: BUPROPION HCL 150MG TABLET XL 24HR PO SCH (09:16)
[2022-06-02] MEDS: FERROUS SULFATE 325MG TABLET PO SCH (09:16)
[2022-06-02 20:00] VITALS: BP 117/55
[2022-06-02] MEDS: ATORVASTATIN CALCIUM 40MG TABLET PO SCH (21:39)
[2022-06-02 21:55] LABS: BASOPHILS % 0.9 % (0.0-2.0); EOSINOPHILS % 4.8 % (0.0-5.0); HEMATOCRIT. 38.6 % (36.0-48.0); HEMOGLOBIN. 12.8 g/dL (12.0-16.0); LYMPHOCYTES % 16.6 % (20.0-50.0); MEAN CORPUSCULAR HEMOGLOBIN 31.8 pg (28.0-32.0); MEAN CORPUSCULAR VOLUME 95.9 fL (81.0-99.0); MEAN PLATELET VOLUME 8.8 fl (7.4-10.4); MONOCYTES % 10.7 % (2.0-8.0); PLATELET 244 x1000/uL (130-400); RED BLOOD CELL COUNT 4.02 mill/uL (4.2-5.4); RED CELL DISTRIBUTION WIDTH 14.6 % (11.6-14.6)
[2022-06-03] MEDS: LEVOTHYROXINE SODIUM 50MCG TABLET PO SCH (06:12)
[2022-06-03] MEDS: ENOXAPARIN 40MG/0.4ML SYR SUBCUT SCH ×2 (06:12→17:33)
[2022-06-03] MEDS: HYDROCODONE/ACETAMINOPHEN 5/325MG TABLET PO PRN ×3 (06:23→23:22)
[2022-06-03 08:00] VITALS: BP 124/66
[2022-06-03] MEDS: NICOTINE 14MG PATCH TD SCH (08:55)
[2022-06-03] MEDS: CLOPIDOGREL 75MG TABLET PO SCH (08:56)
[2022-06-03] MEDS: AMLODIPINE 5MG TABLET PO SCH (08:57)
[2022-06-03] MEDS: BUPROPION HCL 150MG TABLET XL 24HR PO SCH (08:57)
[2022-06-03] MEDS: BACLOFEN 10MG TABLET PO SCH ×4 (08:58→21:46)
[2022-06-03] MEDS: ASPIRIN 81MG TABLET PO SCH (08:58)
[2022-06-03] MEDS: METHYLPHENIDATE HCL 5MG TABLET PO SCH ×2 (09:00→16:09)
[2022-06-03] MEDS: POLYETHYLENE GLYCOL 3350 (17GM) 1 DOSE PACK PO SCH (09:00)
[2022-06-03] MEDS: LIDOCAINE 5% PATCH TOP SCH ×2 (09:00)
[2022-06-03] MEDS: ASCORBIC ACID 500 MG TABLET PO SCH (09:00)
[2022-06-03] MEDS: LACTULOSE 20G/30ML UDC PO SCH ×2 (09:00→16:09)
[2022-06-03] MEDS: MORPHINE SULFATE 15MG TABLET SR PO SCH ×2 (09:00→21:49)
[2022-06-03] MEDS ORDERED: POTASSIUM CHLORIDE 20MEQ TABLET SR PO NR (10:12)
[2022-06-03 11:30] LABS: CLARITY URINE CLEAR (CLEAR); COLOR URINE YELLOW (YELLOW); KETONES URINE TRACE (NEGATIVE); LEUKOCYTE ESTERASE URINE NEGATIVE (NEGATIVE); NITRITE URINE NEGATIVE (NEGATIVE); OCCULT BLOOD URINE NEGATIVE (NEGATIVE); PH URINE 5.5 (4.5-8.0); PROTEIN URINE 2+ (NEGATIVE); SPECIFIC GRAVITY URINE 1.024 (1.005-1.030)
[2022-06-03 19:42] VITALS: BP 117/62
[2022-06-03] MEDS: ATORVASTATIN CALCIUM 40MG TABLET PO SCH (21:46)
[2022-06-04] MEDS: LEVOTHYROXINE SODIUM 50MCG TABLET PO SCH (07:02)
[2022-06-04] MEDS: ENOXAPARIN 40MG/0.4ML SYR SUBCUT SCH ×2 (07:03→17:52)
[2022-06-04 07:56] VITALS: BP 117/62
[2022-06-04] MEDS: LIDOCAINE 5% PATCH TOP SCH ×2 (08:10→10:06)
[2022-06-04] MEDS: POLYETHYLENE GLYCOL 3350 (17GM) 1 DOSE PACK PO SCH (08:10)
[2022-06-04] MEDS: CLOPIDOGREL 75MG TABLET PO SCH (08:15)
[2022-06-04] MEDS: METHYLPHENIDATE HCL 5MG TABLET PO SCH ×2 (08:15→15:44)
[2022-06-04] MEDS: FERROUS SULFATE 325MG TABLET PO SCH (08:15)
[2022-06-04] MEDS: LACTULOSE 20G/30ML UDC PO SCH ×2 (08:15→17:00)
[2022-06-04] MEDS: BACLOFEN 10MG TABLET PO SCH ×4 (08:15→21:55)
[2022-06-04] MEDS: MORPHINE SULFATE 15MG TABLET SR PO SCH ×2 (08:16→21:56)
[2022-06-04] MEDS: BUPROPION HCL 150MG TABLET XL 24HR PO SCH (08:16)
[2022-06-04] MEDS: NICOTINE 14MG PATCH TD SCH (09:00)
[2022-06-04] MEDS: HYDROCODONE/ACETAMINOPHEN 5/325MG TABLET PO PRN (15:38)
[2022-06-04] MEDS ORDERED: ALBUTEROL (0.083%) 2.5MG/3ML NEB HHN PRN (16:00)
[2022-06-04] MEDS ORDERED: IPRATROPIUM BROMIDE (0.02%) 0.5MG/2.5ML NEB HHN PRN (16:00)
[2022-06-04] MEDS ORDERED: IPRATROPIUM/ALBUTEROL 0.5-3(2.5)MG/3ML NEB HHN PRN (16:00)
[2022-06-04 17:15] LABS: BASOPHILS % 0.6 % (0.0-2.0); EOSINOPHILS % 4.3 % (0.0-5.0); HEMATOCRIT. 35.5 % (36.0-48.0); HEMOGLOBIN. 12.1 g/dL (12.0-16.0); LYMPHOCYTES % 14.3 % (20.0-50.0); MEAN CORPUSCULAR HEMOGLOBIN 32.2 pg (28.0-32.0); MEAN PLATELET VOLUME 8.6 fl (7.4-10.4); MONOCYTES % 7.9 % (2.0-8.0); NEUTROPHILS % 72.9 % (40.0-76.0); PLATELET 262 x1000/uL (130-400); RED BLOOD CELL COUNT 3.74 mill/uL (4.2-5.4); RED CELL DISTRIBUTION WIDTH 14.6 % (11.6-14.6)
[2022-06-04 20:00] VITALS: BP 114/52
[2022-06-05 08:00] VITALS: BP 133/58
[2022-06-05] MEDS: METHYLPHENIDATE HCL 5MG TABLET PO SCH ×2 (08:50→17:00)
[2022-06-05] MEDS: LEVOTHYROXINE SODIUM 50MCG TABLET PO SCH (08:50)
[2022-06-05] MEDS: LACTULOSE 20G/30ML UDC PO SCH ×2 (08:50→17:00)
[2022-06-05] MEDS: BACLOFEN 10MG TABLET PO SCH ×4 (08:52→21:55)
[2022-06-05] MEDS: ENOXAPARIN 40MG/0.4ML SYR SUBCUT SCH ×2 (08:52→18:00)
[2022-06-05] MEDS: MORPHINE SULFATE 15MG TABLET SR PO SCH ×2 (08:52→21:56)
[2022-06-05] MEDS: BUPROPION HCL 150MG TABLET XL 24HR PO SCH (08:54)
[2022-06-05] MEDS: NICOTINE 14MG PATCH TD SCH (08:54)
[2022-06-05] MEDS: CLOPIDOGREL 75MG TABLET PO SCH (08:54)
[2022-06-05] MEDS: POLYETHYLENE GLYCOL 3350 (17GM) 1 DOSE PACK PO SCH (08:54)
[2022-06-05] MEDS: LIDOCAINE 5% PATCH TOP SCH ×2 (08:55→08:56)
[2022-06-05] MEDS: HYDROCODONE/ACETAMINOPHEN 5/325MG TABLET PO PRN ×2 (11:37→18:41)
[2022-06-05 20:00] VITALS: BP 141/66
[2022-06-06] MEDS: LEVOTHYROXINE SODIUM 50MCG TABLET PO SCH (07:12)
[2022-06-06] MEDS: METHYLPHENIDATE HCL 5MG TABLET PO SCH ×2 (07:13→17:00)
[2022-06-06] MEDS: ENOXAPARIN 40MG/0.4ML SYR SUBCUT SCH ×2 (07:14→18:06)
[2022-06-06 08:00] VITALS: BP 114/52
[2022-06-06] MEDS: POLYETHYLENE GLYCOL 3350 (17GM) 1 DOSE PACK PO SCH (09:00)
[2022-06-06] MEDS ORDERED: BUPROPION HCL 150MG TABLET XL 24HR PO SCH (09:00)
[2022-06-06] MEDS: BACLOFEN 10MG TABLET PO SCH ×4 (09:00→21:26)
[2022-06-06] MEDS: LIDOCAINE 5% PATCH TOP SCH ×2 (09:00→09:38)
[2022-06-06] MEDS: LACTULOSE 20G/30ML UDC PO SCH ×2 (09:00→17:00)
[2022-06-06] MEDS: MORPHINE SULFATE 15MG TABLET SR PO SCH ×3 (09:00→21:27)
[2022-06-06] MEDS: CLOPIDOGREL 75MG TABLET PO SCH (09:00)
[2022-06-06] MEDS: NICOTINE 14MG PATCH TD SCH (09:42)
[2022-06-06] MEDS: HYDROCODONE/ACETAMINOPHEN 5/325MG TABLET PO PRN ×4 (09:45→23:19)
[2022-06-06 20:06] VITALS: BP 124/46
[2022-06-07] MEDS: ENOXAPARIN 40MG/0.4ML SYR SUBCUT SCH ×2 (06:26→17:25)
[2022-06-07] MEDS: HYDROCODONE/ACETAMINOPHEN 5/325MG TABLET PO PRN ×3 (06:59→17:25)
[2022-06-07] MEDS: LEVOTHYROXINE SODIUM 50MCG TABLET PO SCH (07:34)
[2022-06-07] MEDS: METHYLPHENIDATE HCL 5MG TABLET PO SCH ×2 (07:44→13:41)
[2022-06-07 08:00] VITALS: BP 110/51
[2022-06-07 08:29] LABS: BASOPHILS % 0.9 % (0.0-2.0); EOSINOPHILS % 4.4 % (0.0-5.0); HEMATOCRIT. 34.8 % (36.0-48.0); HEMOGLOBIN. 11.7 g/dL (12.0-16.0); LYMPHOCYTES % 23.8 % (20.0-50.0); MEAN CORPUSCULAR HEMOGLOBIN 31.9 pg (28.0-32.0); MEAN CORPUSCULAR VOLUME 94.7 fL (81.0-99.0); MEAN PLATELET VOLUME 8.5 fl (7.4-10.4); MONOCYTES % 9.9 % (2.0-8.0); PLATELET 242 x1000/uL (130-400); RED BLOOD CELL COUNT 3.68 mill/uL (4.2-5.4); RED CELL DISTRIBUTION WIDTH 14.2 % (11.6-14.6)
[2022-06-07] MEDS: MORPHINE SULFATE 15MG TABLET SR PO SCH ×2 (09:00→21:07)
[2022-06-07] MEDS: BACLOFEN 10MG TABLET PO SCH ×4 (09:00→21:07)
[2022-06-07 09:24] LABS: CHLORIDE 107 mEq/L (98-107)
[2022-06-07] MEDS: CLOPIDOGREL 75MG TABLET PO SCH (09:59)
[2022-06-07] MEDS: POLYETHYLENE GLYCOL 3350 (17GM) 1 DOSE PACK PO SCH (09:59)
[2022-06-07] MEDS: LACTULOSE 20G/30ML UDC PO SCH ×2 (09:59→17:00)
[2022-06-07] MEDS: NICOTINE 14MG PATCH TD SCH (10:00)
[2022-06-07] MEDS: LIDOCAINE 5% PATCH TOP SCH ×2 (10:01→11:50)
[2022-06-07] MEDS ORDERED: NALOXONE HCL 0.4MG/ML VIAL IV PRN (11:00)
[2022-06-07] MEDS: BUPROPION HCL 75MG TABLET PO SCH ×3 (11:50→17:24)
[2022-06-07 20:00] VITALS: BP 137/63
[2022-06-08] MEDS: ENOXAPARIN 40MG/0.4ML SYR SUBCUT SCH ×2 (05:16→18:23)
[2022-06-08] MEDS: HYDROCODONE/ACETAMINOPHEN 5/325MG TABLET PO PRN ×3 (05:16→16:24)
[2022-06-08] MEDS: LEVOTHYROXINE SODIUM 50MCG TABLET PO SCH (06:53)
[2022-06-08] MEDS: METHYLPHENIDATE HCL 5MG TABLET PO SCH ×2 (06:53→13:41)
[2022-06-08 08:00] VITALS: BP 124/62
[2022-06-08] MEDS: POLYETHYLENE GLYCOL 3350 (17GM) 1 DOSE PACK PO SCH (09:00)
[2022-06-08] MEDS: LACTULOSE 20G/30ML UDC PO SCH ×2 (09:00→16:24)
[2022-06-08] MEDS: ERGOCALCIFEROL 50000UNITS CAPSULE PO SCH (09:16)
[2022-06-08] MEDS: MORPHINE SULFATE 15MG TABLET SR PO SCH ×2 (09:18→20:19)
[2022-06-08] MEDS: CLOPIDOGREL 75MG TABLET PO SCH (09:18)
[2022-06-08] MEDS: BACLOFEN 10MG TABLET PO SCH ×4 (09:18→20:18)
[2022-06-08] MEDS: BUPROPION HCL 75MG TABLET PO SCH ×3 (09:18→16:24)
[2022-06-08] MEDS: NICOTINE 14MG PATCH TD SCH (09:19)
[2022-06-08] MEDS: LIDOCAINE 5% PATCH TOP SCH ×2 (09:19→09:20)
[2022-06-08 20:22] VITALS: BP 112/49
[2022-06-09] MEDS: HYDROCODONE/ACETAMINOPHEN 5/325MG TABLET PO PRN ×4 (01:05→23:29)
[2022-06-09] MEDS: ENOXAPARIN 40MG/0.4ML SYR SUBCUT SCH ×2 (06:41→17:04)
[2022-06-09] MEDS: LEVOTHYROXINE SODIUM 50MCG TABLET PO SCH (06:42)
[2022-06-09] MEDS: METHYLPHENIDATE HCL 5MG TABLET PO SCH ×2 (07:00→17:00)
[2022-06-09 08:00] VITALS: BP 132/60
[2022-06-09] MEDS: LACTULOSE 20G/30ML UDC PO SCH ×2 (10:00→17:00)
[2022-06-09] MEDS: NICOTINE 14MG PATCH TD SCH (10:24)
[2022-06-09] MEDS: LIDOCAINE 5% PATCH TOP SCH ×2 (10:25)
[2022-06-09] MEDS: BUPROPION HCL 75MG TABLET PO SCH ×3 (10:26→16:59)
[2022-06-09] MEDS: BACLOFEN 10MG TABLET PO SCH ×4 (10:26→20:41)
[2022-06-09] MEDS: CLOPIDOGREL 75MG TABLET PO SCH (10:26)
[2022-06-09] MEDS: POLYETHYLENE GLYCOL 3350 (17GM) 1 DOSE PACK PO SCH (10:30)
[2022-06-09] MEDS: MORPHINE SULFATE 15MG TABLET SR PO SCH ×2 (10:37→20:41)
[2022-06-09 20:00] VITALS: BP 115/68
[2022-06-10] MEDS: LEVOTHYROXINE SODIUM 50MCG TABLET PO SCH (07:12)
[2022-06-10] MEDS: ENOXAPARIN 40MG/0.4ML SYR SUBCUT SCH ×2 (07:12→17:17)
[2022-06-10 08:00] VITALS: BP 112/52
[2022-06-10] MEDS: METHYLPHENIDATE HCL 5MG TABLET PO SCH ×2 (09:00→17:00)
[2022-06-10] MEDS: BUPROPION HCL 75MG TABLET PO SCH ×3 (10:08→17:17)
[2022-06-10] MEDS: CLOPIDOGREL 75MG TABLET PO SCH (10:09)
[2022-06-10] MEDS: MORPHINE SULFATE 15MG TABLET SR PO SCH ×2 (10:09→22:08)
[2022-06-10] MEDS: NICOTINE 14MG PATCH TD SCH (10:09)
[2022-06-10] MEDS: POLYETHYLENE GLYCOL 3350 (17GM) 1 DOSE PACK PO SCH (10:09)
[2022-06-10] MEDS: BACLOFEN 10MG TABLET PO SCH ×4 (10:09→20:17)
[2022-06-10] MEDS: LIDOCAINE 5% PATCH TOP SCH ×2 (10:10)
[2022-06-10] MEDS: LACTULOSE 20G/30ML UDC PO SCH ×2 (10:11→17:00)
[2022-06-10] MEDS: HYDROCODONE/ACETAMINOPHEN 5/325MG TABLET PO PRN ×2 (13:14→17:18)
[2022-06-10 20:00] VITALS: BP 113/47
[2022-06-11] MEDS: HYDROCODONE/ACETAMINOPHEN 5/325MG TABLET PO PRN ×5 (01:54→19:01)
[2022-06-11] MEDS: ENOXAPARIN 40MG/0.4ML SYR SUBCUT SCH ×2 (06:20→17:59)
[2022-06-11] MEDS: LEVOTHYROXINE SODIUM 50MCG TABLET PO SCH (06:20)
[2022-06-11] MEDS: METHYLPHENIDATE HCL 5MG TABLET PO SCH ×2 (06:20→13:00)
[2022-06-11 07:57] VITALS: BP 110/50
[2022-06-11] MEDS: LIDOCAINE 5% PATCH TOP SCH ×2 (08:12→08:13)
[2022-06-11] MEDS: NICOTINE 14MG PATCH TD SCH (08:14)
[2022-06-11] MEDS: BACLOFEN 10MG TABLET PO SCH ×4 (08:17→21:00)
[2022-06-11] MEDS: BUPROPION HCL 75MG TABLET PO SCH ×3 (08:17→17:59)
[2022-06-11] MEDS: CLOPIDOGREL 75MG TABLET PO SCH (08:17)
[2022-06-11] MEDS: MORPHINE SULFATE 15MG TABLET SR PO SCH ×2 (08:20→21:00)
[2022-06-11] MEDS: POLYETHYLENE GLYCOL 3350 (17GM) 1 DOSE PACK PO SCH (08:26)
[2022-06-11] MEDS: LACTULOSE 20G/30ML UDC PO SCH ×2 (08:26→17:00)
[2022-06-11 19:50] VITALS: BP 101/46
[2022-06-12] MEDS: ENOXAPARIN 40MG/0.4ML SYR SUBCUT SCH ×2 (06:00→17:38)
[2022-06-12] MEDS: LEVOTHYROXINE SODIUM 50MCG TABLET PO SCH (07:17)
[2022-06-12 08:00] VITALS: BP 130/60
[2022-06-12] MEDS: METHYLPHENIDATE HCL 5MG TABLET PO SCH ×2 (09:00→17:00)
[2022-06-12] MEDS ORDERED: ONDANSETRON HCL 4MG/2ML INJ IV PRN (10:00)
[2022-06-12] MEDS: LACTULOSE 20G/30ML UDC PO SCH ×2 (11:40→17:00)
[2022-06-12] MEDS: NICOTINE 14MG PATCH TD SCH (11:44)
[2022-06-12] MEDS: LIDOCAINE 5% PATCH TOP SCH ×2 (11:45)
[2022-06-12] MEDS: POLYETHYLENE GLYCOL 3350 (17GM) 1 DOSE PACK PO SCH (11:45)
[2022-06-12] MEDS: BUPROPION HCL 75MG TABLET PO SCH ×3 (11:46→17:37)
[2022-06-12] MEDS: MORPHINE SULFATE 15MG TABLET SR PO SCH ×2 (11:46→21:00)
[2022-06-12] MEDS: CLOPIDOGREL 75MG TABLET PO SCH (11:47)
[2022-06-12] MEDS: BACLOFEN 10MG TABLET PO SCH ×4 (11:47→23:01)
[2022-06-12] MEDS ORDERED: ALBUTEROL (0.083%) 2.5MG/3ML NEB HHN PRN (14:15)
[2022-06-12] MEDS ORDERED: IPRATROPIUM/ALBUTEROL 0.5-3(2.5)MG/3ML NEB HHN PRN (14:15)
[2022-06-12] MEDS ORDERED: IPRATROPIUM BROMIDE (0.02%) 0.5MG/2.5ML NEB HHN PRN (14:15)
[2022-06-12] MEDS: HYDROCODONE/ACETAMINOPHEN 5/325MG TABLET PO PRN (17:43)
[2022-06-12 20:00] VITALS: BP 122/60
[2022-06-13] MEDS: MORPHINE SULFATE 15MG TABLET SR PO SCH ×2 (00:31→12:58)
[2022-06-13] MEDS: ENOXAPARIN 40MG/0.4ML SYR SUBCUT SCH (06:24)
[2022-06-13] MEDS: LEVOTHYROXINE SODIUM 50MCG TABLET PO SCH (06:24)
[2022-06-13] MEDS: HYDROCODONE/ACETAMINOPHEN 5/325MG TABLET PO PRN ×3 (06:48→15:09)
[2022-06-13 08:00] VITALS: BP 114/58
[2022-06-13] MEDS: METHYLPHENIDATE HCL 5MG TABLET PO SCH (08:59)
[2022-06-13] MEDS: LACTULOSE 20G/30ML UDC PO SCH (09:00)
[2022-06-13] MEDS ORDERED: POLYETHYLENE GLYCOL 3350 (17GM) 1 DOSE PACK PO SCH (09:00)
[2022-06-13] MEDS: NICOTINE 14MG PATCH TD SCH (09:01)
[2022-06-13] MEDS: CLOPIDOGREL 75MG TABLET PO SCH (09:02)
[2022-06-13] MEDS: BUPROPION HCL 75MG TABLET PO SCH ×2 (09:02→12:57)
[2022-06-13] MEDS: BACLOFEN 10MG TABLET PO SCH ×2 (09:02→12:57)
[2022-06-13] MEDS: LIDOCAINE 5% PATCH TOP SCH (09:09)
[2022-06-13 14:14] VITALS: BP 114/58
[2022-06-13 15:09] VITALS: BP 125/69
== END 2022-06-13 15:30 | disposition short-term general hospital (02) | DRG 45 ==
PROVIDERS: ADMIT Physical Medicine & Rehabilitation Spinal Cord Injury Medicine; ATTEND Family Medicine Adult Medicine
PROC: 0HBRXZZ Excision of Toe Nail, External Approach (ICD-10-PCS; 2022-05-08)
PROC: 0HBRXZZ Excision of Toe Nail, External Approach (ICD-10-PCS; 2022-05-08)
PROC: 0HBRXZZ Excision of Toe Nail, External Approach (ICD-10-PCS; 2022-05-08)
PROC: 0HBRXZZ Excision of Toe Nail, External Approach (ICD-10-PCS; 2022-05-08)
PROC: 0HBRXZZ Excision of Toe Nail, External Approach (ICD-10-PCS; 2022-05-08)
PROC: 0HBRXZZ Excision of Toe Nail, External Approach (ICD-10-PCS; 2022-05-08)
PROC: 0HBRXZZ Excision of Toe Nail, External Approach (ICD-10-PCS; 2022-05-08)
PROC: 0HBRXZZ Excision of Toe Nail, External Approach (ICD-10-PCS; 2022-05-08)
PROC: 0HBRXZZ Excision of Toe Nail, External Approach (ICD-10-PCS; 2022-05-08)
PROC: 0HBRXZZ Excision of Toe Nail, External Approach (ICD-10-PCS; 2022-05-08)
PROC: 02HV33Z Insertion of Infusion Device into Superior Vena Cava, Percutaneous Approach (ICD-10-PCS; principal; 2022-05-28)
PROC: B548ZZA Ultrasonography of Superior Vena Cava, Guidance (ICD-10-PCS; 2022-05-28)
DX: I63.9 Cerebral infarction, unspecified (principal); N17.9 Acute kidney failure, unspecified; E44.1 Mild protein-calorie malnutrition; F33.1 Major depressive disorder, recurrent, moderate; I69.354 Hemiplegia and hemiparesis following cerebral infarction affecting left non-dominant side; R47.01 Aphasia; B35.1 Tinea unguium; F17.210 Nicotine dependence, cigarettes, uncomplicated; D50.9 Iron deficiency anemia, unspecified; B96.20 Unspecified Escherichia coli [E. coli] as the cause of diseases classified elsewhere; E03.9 Hypothyroidism, unspecified; E55.9 Vitamin D deficiency, unspecified; E66.01 Morbid (severe) obesity due to excess calories; E78.00 Pure hypercholesterolemia, unspecified; G47.33 Obstructive sleep apnea (adult) (pediatric); G47.419 Narcolepsy without cataplexy; G89.29 Other chronic pain; I12.9 Hypertensive chronic kidney disease with stage 1 through stage 4 chronic kidney disease, or unspecified chronic kidney disease; I65.21 Occlusion and stenosis of right carotid artery; I89.0 Lymphedema, not elsewhere classified; L60.3 Nail dystrophy; L84 Corns and callosities; M47.26 Other spondylosis with radiculopathy, lumbar region; M51.16 Intervertebral disc disorders with radiculopathy, lumbar region; N18.9 Chronic kidney disease, unspecified; R13.10 Dysphagia, unspecified; N39.0 Urinary tract infection, site not specified; E87.6 Hypokalemia; R47.1 Dysarthria and anarthria; R29.810 Facial weakness; Z79.82 Long term (current) use of aspirin; Z68.43 Body mass index [BMI] 50.0-59.9, adult; Z88.0 Allergy status to penicillin; Z91.81 History of falling; Z79.899 Other long term (current) drug therapy; Z79.02 Long term (current) use of antithrombotics/antiplatelets; R73.9 Hyperglycemia, unspecified; R44.3 Hallucinations, unspecified; R94.6 Abnormal results of thyroid function studies
CPT/HCPCS: 36415; 36573; 70496; 70498; 70551; 71045; 74018; 76770; 80048; 80053; 81003; 81400; 81403; 81407; 81479; 82140; 82306; 82550; 82570; 82607; 82728; 82746; 83036; 83540; 83550; 84134; 84156; 84439; 84443; 85025; 85300; 85303; 85306; 85651; 86038; 86147; 86160; 86256; 86376; 86803; 87186; 87340; 87426; 92523; 92610; 93306; 93880; 93970; 94660; 97110; 97112; 97116; 97140; 97162; 97166; 97530; 97535; 97760; A4565; A6261; C1725; C1893; J1650; J2270; J2405; J3490; Q0162; Q9967; 97763-GO